=== PATIENT | male | born 1970 | race Caucasian/White ===

== ENCOUNTER 2021-03-12 13:27 | Inpatient (IN) | payer OTHER ==
[2021-03-12 14:53] VITALS: BMI 23.6
[2021-03-12] MEDS ORDERED: MAGNESIUM CITRATE 300 ML BOTTLE PO PRN (15:43)
[2021-03-12] MEDS ORDERED: ONDANSETRON *ODT* 4 MG TABLET SL PRN (15:43)
[2021-03-12] MEDS ORDERED: MENTHOL/PHENOL 1 EACH UD MM PRN (15:43)
[2021-03-12] MEDS ORDERED: BISMUTH SUBSALICYLATE 524 MG/30 ML PO PRN (15:43)
[2021-03-12] MEDS ORDERED: IBUPROFEN 400 MG TABLET (FP) PO PRN (15:43)
[2021-03-12] MEDS ORDERED: MAGNESIUM HYDROX 2400MG/30ML ORAL SUSPENSION 30 ML CUP PO PRN (15:43)
[2021-03-12] MEDS ORDERED: MAG HYDROX/AL HYDROX/SIMETH 30 ML UNIT-DOSE CUP PO PRN (15:43)
[2021-03-12] MEDS ORDERED: ACETAMINOPHEN 325 MG TABLET (FP) PO PRN (15:43)
[2021-03-12] MEDS: THIAMINE HCL 100 MG TABLET (FP) PO SCH (22:37)
[2021-03-12] MEDS: MELATONIN 5 MG TABLETS PO SCH (22:37)
[2021-03-12] MEDS: hydrOXYzine PAMOATE 25 MG CAPSULE (FP) PO PRN (22:37)
[2021-03-13] MEDS ORDERED: diazePAM 5 MG TABLET PO PRN (08:54)
[2021-03-13] MEDS: PRENATAL VITAMINS W/ FOLIC ACID TABLET (FP) PO SCH (10:42)
[2021-03-13] MEDS: hydrOXYzine PAMOATE 25 MG CAPSULE (FP) PO PRN ×3 (10:43→22:25)
[2021-03-13] MEDS: diazePAM 5 MG TABLET PO SCH ×3 (10:43→22:25)
[2021-03-13] MEDS: APIXABAN 5 MG TABLET PO SCH ×2 (10:43→22:25)
[2021-03-13 11:16] LABS: HEMATOCRIT 40.6 % (35.4-49); HEMOGLOBIN 13.9 GM/dL (11.7-16.9); MCH 32.4 pg (25.7-33.7); MCHC 34.2 g/dl (32.0-35.9); MEAN CELL VOLUME 94.8 fl (80-96); MEAN PLT VOLUME 7.6 fl (7.5-11.1); PLATELET COUNT 266 10^3/uL (134-434); RBC 4.28 M/mm3 (4.00-5.60); RDW 13.6 % (11.9-15.9); WHITE BLOOD COUNT 9.1 K/mm3 (4.0-10.0)
[2021-03-13 11:20] LABS: ALBUMIN 3.2 g/dl (3.4-5.0); BLOOD UREA NITROGEN 8.8 mg/dL (7-18)
[2021-03-13 11:23] LABS: CREATININE 0.7 mg/dL (0.55-1.3)
[2021-03-13 11:24] LABS: BILIRUBIN,TOTAL 0.7 mg/dL (0.2-1); TOT PROT 6.8 g/dl (6.4-8.2)
[2021-03-13] MEDS ORDERED: ACETAMINOPHEN 325 MG TABLET (FP) PO ONE (12:57)
[2021-03-13] MEDS: MELATONIN 5 MG TABLETS PO SCH (22:24)
[2021-03-13] MEDS: THIAMINE HCL 100 MG TABLET (FP) PO SCH (22:25)
[2021-03-14] MEDS: diazePAM 5 MG TABLET PO SCH ×4 (06:26→22:45)
[2021-03-14] MEDS: ACETAMINOPHEN 325 MG TABLET (FP) PO PRN ×2 (06:27→17:54)
[2021-03-14] MEDS: METHOCARBAMOL 500 MG TABLET PO PRN (10:12)
[2021-03-14] MEDS: hydrOXYzine PAMOATE 25 MG CAPSULE (FP) PO PRN ×3 (10:12→22:46)
[2021-03-14] MEDS: APIXABAN 5 MG TABLET PO SCH ×2 (10:12→22:44)
[2021-03-14] MEDS: PRENATAL VITAMINS W/ FOLIC ACID TABLET (FP) PO SCH (10:12)
[2021-03-14] MEDS: THIAMINE HCL 100 MG TABLET (FP) PO SCH (22:36)
[2021-03-14] MEDS: MELATONIN 5 MG TABLETS PO SCH (22:44)
[2021-03-15] MEDS: diazePAM 5 MG TABLET PO SCH ×2 (06:09→17:36)
[2021-03-15] MEDS: hydrOXYzine PAMOATE 25 MG CAPSULE (FP) PO PRN (06:10)
[2021-03-15] MEDS: PRENATAL VITAMINS W/ FOLIC ACID TABLET (FP) PO SCH (10:18)
[2021-03-15] MEDS: APIXABAN 5 MG TABLET PO SCH ×2 (10:18→22:25)
[2021-03-15] MEDS: CEPHALEXIN MONOHYDRATE 500 MG CAPSULE (UD) PO SCH ×2 (14:19→22:25)
[2021-03-15] MEDS: THIAMINE HCL 100 MG TABLET (FP) PO SCH (22:25)
[2021-03-15] MEDS: MELATONIN 5 MG TABLETS PO SCH (22:25)
[2021-03-16] MEDS ORDERED: diazePAM 5 MG TABLET PO ONE (06:00)
[2021-03-16] MEDS: CEPHALEXIN MONOHYDRATE 500 MG CAPSULE (UD) PO SCH ×3 (06:03→13:21)
[2021-03-16 09:23] VITALS: PULSE 85
[2021-03-16] MEDS: hydrOXYzine PAMOATE 25 MG CAPSULE (FP) PO PRN ×2 (10:31→13:21)
[2021-03-16] MEDS: PRENATAL VITAMINS W/ FOLIC ACID TABLET (FP) PO SCH (10:31)
[2021-03-16] MEDS: APIXABAN 5 MG TABLET PO SCH (10:31)
[2021-03-16] MEDS: METHOCARBAMOL 500 MG TABLET PO PRN (10:31)
[2021-03-16] MEDS ORDERED: NICOTINE 10 MG CARTRIDGE (INHALER) IH PRN (10:38)
[2021-03-16] MEDS ORDERED: NICOTINE POLACRILEX 4 MG GUM BUC PRN (10:38)
[2021-03-16] MEDS ORDERED: BENZOCAINE 28 GM HEMORRHOIDAL OINTMENT RC SCH (10:45)
[2021-03-16] MEDS ORDERED: NICOTINE 21 MG/24 HOURS TOPICAL PATCH TD SCH (10:45)
[2021-03-16 13:32] VITALS: BP 124/68; TEMP 97.1
[2021-03-16] MEDS ORDERED: WITCH HAZEL 50% (TUCKS) 40 PAD/JAR PAD TP SCH (14:00)
== END 2021-03-16 13:44 | disposition other institution (70) | DRG 775 ==
LOC: YASAS 13:27 → UNDOADMIN 17:59 → Y6N 17:59
PROVIDERS: ADMIT Allergy & Immunology; ATTEND Allergy & Immunology
PROC: HZ2ZZZZ Detoxification Services for Substance Abuse Treatment (ICD-10-PCS; principal; 2021-03-12)
DX: F10.230 Alcohol dependence with withdrawal, uncomplicated (principal); F10.220 Alcohol dependence with intoxication, uncomplicated; F17.210 Nicotine dependence, cigarettes, uncomplicated; K61.0 Anal abscess; Z86.711 Personal history of pulmonary embolism; Z79.01 Long term (current) use of anticoagulants; Z87.820 Personal history of traumatic brain injury; Z98.890 Other specified postprocedural states; Z99.89 Dependence on other enabling machines and devices
CPT/HCPCS: 36415; 71046-TC-FY; 80053; 85027; 86780; C9803; U0003; U0005